=== PATIENT | female | born 1985 ===

== ENCOUNTER 2024-10-22 10:57 | Emergency (ER) | payer OTHER ==
[~2024-10-22] VITALS: Ht 157.5 cm; Wt 67.1 kg
[~2024-10-22 10:57] MED LIST: VISTARIL25 MG PO
[2024-10-22] MEDS ORDERED: TOPROL XL100 M1 (11:08)
[2024-10-22] MEDS ORDERED: 0.9 % SODIUM CHLORIDE 1,000 ML IV STA (11:42)
[2024-10-22 12:38] LABS: HEMATOCRIT 34.5 % (36.0-45.00); HEMOGLOBIN 11.2 g/dL (12.0-15.00); MEAN CELL VOLUME 83.2 fL (80.00-100.00); MEAN CORPUSCULAR HGB CONC 32.4 g/dl (32.0-36.0); PLATELET COUNT 171 K/uL (150-450); RED BLOOD COUNT 4.15 M/uL (4.00-6.00); RED CELL DISTRIBUTION WIDTH 15.6 % (11.5-14.5)
[2024-10-22 12:49] LABS: CALCIUM 9.1 mg/dL (8.5-10.1); CREATININE SERUM 0.96 mg/dL (0.55-1.02); GFR 64.7; POTASSIUM 3.39 mEq/L (3.5-5.1)
== END 2024-10-22 14:39 | disposition home or self-care (01) ==
LOC: ER 10:57
PROVIDERS: Emergency Medicine
DX: R42 Dizziness and giddiness (principal); I10 Essential (primary) hypertension; Z20.822 Contact with and (suspected) exposure to COVID-19